=== PATIENT | male | born 1945 | race Caucasian/White ===

== ENCOUNTER → 2024-01-26 11:26 | Outpatient (REF) | payer MEDICARE, OTHER, SELFPAY | LOC: PAVMRI 11:26 | PROVIDERS: ATTENDING PHYSICIAN Psychiatry & Neurology Neurology; FAMILY PHYSICIAN Family Medicine | DX: G95.9 Disease of spinal cord, unspecified (principal) | CPT/HCPCS: 72156; A9575 ==